=== PATIENT | female | born 1990 | race Caucasian/White ===

== ENCOUNTER 2017-02-04 00:05 | Emergency (ER) | payer OTHER ==
[~2017-02-04] VITALS: Ht 162.6 cm; Wt 110.6 kg
[2017-02-04 00:11] VITALS: TEMP 36.7; Ht 162.6 cm; Wt 110.6 kg
[2017-02-04 00:38] LABS: BASO % 0.4 %; BASO ABS # 0.04 K/uL (0-0.2); COMPLETE YES; EOS % 1.4 %; HEMATOCRIT 39.2 % (37-47); IG% 0.1 %; LYMPH % 29.9 %; LYMPH ABS # 2.72 K/uL (1.2-3.4); MEAN CELL VOLUME 86.2 fL (80-100); MEAN CORPUSCULAR HEMOGLOBIN 29.2 pg (25-34); MEAN CORPUSCULAR HGB CONC 33.9 g/dl (32-36); MEAN PLATELET VOLUME 9.7 fL (7.4-10.4); MONO % 6.7 %; NEUT % 61.5 %; PLATELET COUNT 265 K/uL (130-400); RED BLOOD COUNT 4.55 M/uL (4.2-5.4); WHITE BLOOD COUNT 9.09 K/uL (4.8-10.8)
[2017-02-04] MEDS ORDERED: PRENTAB26 PO (00:38)
[2017-02-04 00:55] LABS: BUN/CREATININE RATIO 24.4 (10-20); CALCIUM 9.4 mg/dl (8.5-10.1); CREATININE 0.67 mg/dl (0.60-1.20); POTASSIUM 3.9 mmol/L (3.5-5.1)
[2017-02-04 02:20] LABS: URINE APPEARANCE CLEAR (CLEAR); URINE BILIRUBIN NEG (NEG); URINE COLOR YELLOW; URINE EPITHELIAL CELL AUTO 20-30 /lpf (0-5); URINE NITRITE NEG (NEG); UROBILINOGEN NEG (NEG)
[2017-02-04 02:21] LABS: MANUAL MICROSCOPIC REQUIRED? NO; REVIEW REQ? NO
--- NOTE | 2017-02-04 02:39 | EMERGENCY ROOM VISIT NOTE ---
History Report prepared by Buddy: Louise Chavez Under the Supervision of: Dr. Andre Putnam M.D. First contact with patient: 00:13 Chief Complaint: ED VAG BLEEDING Stated Complaint: BLEEDING - 9 WKS History of Present Illness The patient is a 26 year old female who presents to the Emergency Room with complaints of worsening vaginal bleeding starting two days ago. The patient states that she is 8-9 weeks . She reports that this is her second and she denies any complications with her prior . She states that when it originally started it was brown and spotting. She states that now it is heavier and more like the start of a period. The patient denies any abdominal or pelvic pain, fever, vomiting, and urinary symptoms. She notes that she has an ultrasound scheduled for tomorrow. Source of History: patient Onset: 2 days ago Position: other (global) Quality: other (global) Timing: worsening Associated Symptoms: No fevers, No vomiting, No urinary symptoms Note: The patient denies any pain. Review of Systems See HPI for pertinent positives & negatives. A total of 10 systems reviewed and were otherwise negative. Past Medical & Surgical Medical Problems: (1) No Known Active Medical Problems Family History No pertinent family history Social History Smoking Status: Former Smoker Marital Status: Housing Status: lives with family Current/Historical Medications Scheduled Multivit/Min/Iron/Fol Ac/Pren ( Vitamin), 1 TAB PO DAILY Allergies Coded Allergies: No Known Allergies (Unverified , 02/04/17) Physical Exam Vital Signs Date Time Temp Pulse Resp B/P (MAP) Pulse Ox O2 Delivery O2 Flow Rate FiO2 02/04/17 01:46 77 18 114/85 97 Room Air 02/04/17 00:11 36.7 76 18 148/86 99 Room Air Physical Exam Constitutional: Vital signs reviewed. Eyes: Pupils are equal round reactive to light. Conjunctiva are noninjected. ENT: Pharynx is clear without erythema or exudate. Mucous membranes are moist. Neck supple without meningeal signs. Respiratory: Clear to auscultation bilaterally. Breath sounds are equal bilaterally. Cardiovascular: Regular rate and rhythm. No rubs or gallops. GI: Soft, nondistended and nontender. Bowel sounds are present. Musculoskeletal: No peripheral edema. No lower extremity tenderness. Integumentary: No cyanosis. Neurological: The patient is awake and alert. No focal deficits. Psychiatric: Normal affect. Medical Decision & Procedures ER Provider Diagnostic Interpretation: Ultrasound of the pelvis demonstrates a 1.6 x 1 x 1.3 cm subchorionic hemorrhage. Single intrauterine . Embryo identified with average ultrasound age of 6 weeks 0 days. No heart rate is detected. Recommend serial beta hCG measurements and short-term follow up exam if clinically indicated. Small yolk sac identified. Unremarkable right ovary likely containing a corpus luteum though there appears to be some shadowing which may be from a small calcification. Normal color Doppler flow. Nonvisualization of the left ovary. Laboratory Results 02/04/17 00:28 Red Blood Count 4.55, Mean Corpuscular Volume 86.2, Mean Corpuscular Hemoglobin 29.2, Mean Corpuscular Hemoglobin Concent 33.9, Mean Platelet Volume 9.7, Neutrophils (%) (Auto) 61.5, Lymphocytes (%) (Auto) 29.9, Monocytes (%) (Auto) 6.7, Eosinophils (%) (Auto) 1.4, Basophils (%) (Auto) 0.4, Neutrophils # (Auto) 5.58, Lymphocytes # (Auto) 2.72, Monocytes # (Auto) 0.61, Eosinophils # (Auto) 0.13, Basophils # (Auto) 0.04 02/04/17 00:28 Test 02/04/17 00:00 02/04/17 00:28 Urine Color YELLOW Urine Appearance CLEAR (CLEAR) Urine pH 6.0 (4.5-7.5) Urine Specific [place] 1.010 (1.000-1.030) Urine Protein NEG (NEG) Urine Glucose (UA) NEG (NEG) Urine Ketones NEG (NEG) Urine Occult Blood 3+ (NEG) Urine Nitrite NEG (NEG) Urine Bilirubin NEG (NEG) Urine Urobilinogen NEG (NEG) Urine Leukocyte Esterase TRACE (NEG) Urine WBC (Auto) 1-5 /hpf (0-5) Urine RBC (Auto) 0-4 /hpf (0-4) Urine Hyaline Casts (Auto) 1-5 /lpf (0-5) Urine Epithelial Cells (Auto) 20-30 /lpf (0-5) Urine Bacteria (Auto) NEG (NEG) White Blood Count 9.09 K/uL (4.8-10.8) Red Blood Count 4.55 M/uL (4.2-5.4) Hemoglobin 13.3 g/dL (12.0-16.0) Hematocrit 39.2 % (37-47) Mean Corpuscular Volume 86.2 fL (80-100) Mean Corpuscular Hemoglobin 29.2 pg (25-34) Mean Corpuscular Hemoglobin Concent 33.9 g/dl (32-36) Platelet Count 265 K/uL (130-400) Mean Platelet Volume 9.7 fL (7.4-10.4) Neutrophils (%) (Auto) 61.5 % Lymphocytes (%) (Auto) 29.9 % Monocytes (%) (Auto) 6.7 % Eosinophils (%) (Auto) 1.4 % Basophils (%) (Auto) 0.4 % Neutrophils # (Auto) 5.58 K/uL (1.4-6.5) Lymphocytes # (Auto) 2.72 K/uL (1.2-3.4) Monocytes # (Auto) 0.61 K/uL (0.11-0.59) Eosinophils # (Auto) 0.13 K/uL (0-0.5) Basophils # (Auto) 0.04 K/uL (0-0.2) RDW Standard Deviation 39.9 fL (36.4-46.3) RDW Coefficient of Variation 12.7 % (11.5-14.5) Immature Granulocyte % (Auto) 0.1 % Immature Granulocyte # (Auto) 0.01 K/uL (0.00-0.02) Anion Gap 7.0 mmol/L (3-11) Est Creatinine Clear Calc Drug Dose 153.5 ml/min Estimated GFR () 139.6 Estimated GFR (Non- 120.5 BUN/Creatinine Ratio 24.4 (10-20) Calcium Level 9.4 mg/dl (8.5-10.1) Human Chorionic Gonadotropin, Quant 66472 mIU/mL Laboratory results as reviewed by me. ED Course 0014: The patient was evaluated in room A4B. A complete history and physical exam was performed. Medical Decision This is a 26-year-old female who presents with vaginal bleeding. Differential diagnosis includes threatened miscarriage, ectopic , miscarriage, uterine fibroid, ruptured ovarian cyst. I did perform a limited focused review of portions of the patient's old chart on the electronic medical record. The patient has had no recent pertinent visits to this hospital. I did evaluate the patient as noted above. The patient is presenting with vaginal bleeding starting several days ago. She is approximately 8-9 weeks . She has had no prior occasions with her pregnancies in the past. She has no pelvic pain. IV access was established. I did order and personally review the patient's urinalysis as described above. I did order and review the patient's blood work as noted in the electronic medical record. I did order an ultrasound of the pelvis. I did review the images myself as well as the radiology report as described above. The ultrasound shows a subchorionic hemorrhage. There is a intrauterine with a gestational age of 6 weeks. There is no detectable heart rate. I did reassess the patient. I did discuss the test results with her and her . At this time it seems most likely that she had a miscarriage, although I did recommend that she have a repeat beta-hCG and follow up with her cement mason as the radiologist's stated that it could possibly be a very early gestation. The patient will call her cement mason tomorrow. She was discharged in good condition. Medication Reconcilliation Current Medication List: was personally reviewed by me Blood Pressure Screening Patient's blood pressure: Elevated blood pressure Blood pressure disposition: Referred to PCP Impression Primary Impression: Threatened miscarriage in early Scribe Attestation The scribe's documentation has been prepared under my direct and personally reviewed by me in its entirety. I confirm that the note above accurately reflects all work, treatment, procedures, and medical decision making performed by me. Departure Information Dispostion Home / Self-Care Referrals No Doctor, Assigned (PCP) Patient Instructions [facility] Additional Instructions You have been examined and treated today on an emergency basis only. This is not a substitute for, or an effort to provide, complete comprehensive medical care. It is impossible to recognize and treat all injuries or illnesses in a single emergency department visit. It is therefore important that you follow up closely with your cement mason. Call as soon as possible for an appointment. Have your doctor recheck your beta hCG which was 19,000 today. Return for worsening symptoms or if you develop fever, vomiting, or any other concerning symptoms.
[2017-02-04 02:43] VITALS: BP 118/71; PULSE 65; O2SAT 98
--- NOTE | 2017-02-04 06:59 | DIAGNOSTIC IMAGING REPORT ---
ECTOPIC HISTORY: 26 years-old Female vag bleed 8 weeks acute vaginal bleeding with COMPARISON: None available TECHNIQUE: Multiple real-time sonographic images of the deep pelvic structures were obtained transabdominally and transvaginally assessing grayscale appearance, color Doppler flow, spectral analysis and M-mode analysis. FINDINGS: TRANSABDOMINAL: Anteflexed uterus measures 10.7 x 5.1 cm. There is a curvilinear hypoechoic collection noted inferior to an intrauterine gestational sac, 1.7 x 0.8 x 1.2 cm without internal vascularity identified. Gestational sac measures 1.2 cm correlating with estimated gestational age of 5 weeks and 2 days. TRANSVAGINAL: Anteflexed uterus measures 9.0 x 5.6 x 6.2 cm. Complex collection which is slightly hypoechoic is noted anterior and inferior to the gestational sac suggesting subchorionic hematoma, 1.6 x 1.0 x 1.3 cm. No internal vascularity identified. Gestational sac measures 1.3 cm, correlating with estimated gestational age of 5 weeks and 3 days. Yolk sac measures 0.2 cm. [place]-rump length measures 0.3 cm which correlates with estimated gestational age of 6 weeks and 0 days. No heart rate identified. Right ovary measures 3.1 x 1.8 x 1.6 cm with arterial inflow documented. Probable right corpus luteum measures 1.7 x 1.7 x 1.6 cm. Focal area of shadowing within the right ovary suggests possible calcification. Left ovary is not diagnostically visualized. IMPRESSION: 1. Intrauterine gestational sac contains a small yolk sac and fetus with size correlating with estimated gestational age by crown-rump length of 6 weeks and 0 days. No heart rate identified at this time. Continued follow-up with serial quantitative beta hCG analysis and ultrasound imaging is needed to confirm viability. 2. Moderate-sized subchorionic hematoma is noted inferior and anterior to the gestational sac measuring up to 1.6 cm. Follow-up recommended to confirm resolution. 3. Unremarkable right ovary with right corpus luteum. Left ovary not diagnostically visualized. The above report was generated using voice recognition software. It may contain grammatical, syntax or spelling errors. Electronically signed by: Antonio Munguia M.D. 02/04/2017 6:58 AM Dictated Date/Time: 02/04/2017 6:52 AM
== END 2017-02-04 02:44 | disposition home or self-care (01) ==
LOC: C.EDB 00:07 → C.EDA 02:44
DX: O20.0 Threatened abortion (principal); Z87.891 Personal history of nicotine dependence

== ENCOUNTER → 2017-05-08 | Outpatient (CLI) | payer OTHER ==
[~2017-05-08] MED LIST: PRENTAB26 PO
== END | disposition home or self-care (01) ==
LOC: C.LABSPEC 14:35
PROVIDERS: ATTEND Obstetrics & Gynecology
DX: Z34.81 Encounter for supervision of other normal pregnancy, first trimester (principal)

== ENCOUNTER 2019-03-27 20:19 | Inpatient (IN) ==
[2019-03-27] MEDS ORDERED: OXYTOCIN 30 UNITS/500ML NSS ONE (20:32)
[2019-03-27] MEDS ORDERED: OXYTOCIN 30 UNITS/500 ML BAG IV PRN ×2 (20:45→20:49)
[2019-03-27] MEDS ORDERED: LACTATED RINGER'S 1,000 ML IV PRN (20:45)
[2019-03-27] MEDS ORDERED: HYDROCORTISONE ACETATE 25 MG SUPP PR PRN (20:49)
[2019-03-27] MEDS ORDERED: ACETAMINOPHEN W/CODEINE #3 1 TAB PO PRN (20:49)
[2019-03-27] MEDS ORDERED: BENZOCAINE 20% AER SPR 82.5 GM CAN EXT PRN (20:49)
[2019-03-27] MEDS ORDERED: DIPHTHERIA/TETANUS/PERTUSSIS 0.5 ML SYR/VIAL IM ONE (20:49)
[2019-03-27] MEDS ORDERED: bisacodyL 10 MG SUPP PR PRN (20:49)
[2019-03-27] MEDS ORDERED: SUPERCREAM 0.870% 15 GM JAR EXT PRN (20:49)
[2019-03-27] MEDS ORDERED: OXYCODONE/ACETAMINOPHEN 5mg/325mg TAB PO PRN (20:49)
[2019-03-27] MEDS ORDERED: DOCUSATE SODIUM 100 MG CAP ONE (21:07)
[2019-03-27] MEDS ORDERED: IBUPROFEN 600 MG TAB PO ONE (21:08)
[2019-03-27 21:26] LABS: Hematocrit (blood only) 36.2 % (37-47); Hemoglobin 11.9 g/dL (12.0-16.0); Mean Corpuscular Hemoglobin 26.7 pg (25-34); Mean Corpuscular Volume 81.2 fL (80-100); Mean Platelet Volume 10.5 fL (7.4-10.4); Platelet Count 247 K/uL (130-400); RDW Coefficient of Variation 14.5 % (11.5-14.5); RDW Standard Deviation 42.6 fL (36.4-46.3); Red Blood Count 4.46 M/uL (4.2-5.4); White Blood Count 11.85 K/uL (4.8-10.8)
[2019-03-27 22:50] LABS: Mean Corpuscular Hgb Conc 32.9 g/dL (32-36)
[2019-03-27] MEDS: DOCUSATE SODIUM 100 MG CAP PO SCH (23:26)
[2019-03-27] MEDS: ACETAMINOPHEN 325 MG TAB PO PRN (23:28)
--- NOTE | 2019-03-28 02:32 | Delivery Summary ---
DATE OF OPERATION: 03/27/2019 The patient is a 3, para 2. She had a with her first delivery at [place]. Subsequently, she had a and today she had another successful . care was limited due to the patient's refusal to have any pelvic exams at all and did not want any interference, offer to strip her membranes was declined. She came in active labor. I got to the Labor Floor. The membranes were bulging through the vaginal introitus. I broke the water. There was some meconium staining. About 4 pushes, she pushed out a live female infant via direct occiput anterior position over an intact perineum. There was some difficulty dislodging shoulders. We had to use some flexion of the thigh, suprapubic pressure, then the shoulders dislodged. was born intact, suctioned through the mouth and the nose. There was a little limp at first, so I stripped the cord, cut it, handed it over to the nurses. Estimated weight was well over 10 pounds. The patient did not want oxytocin, so we massaged the uterus, delivered the placenta intact. Inspection of the perineum revealed a first degree laceration at about 4 o'clock. The extent of laceration was identified and then sutured with a running 2-0 heavy Vicryl. Following this, vaginal examination revealed no hematoma formation or sponges in the vagina. Estimated blood loss was 200 mL. Apgars were deferred to the nurses. I attest to the content of the Intraoperative Record and any orders documented therein. Any exception s are noted below.
[2019-03-28] MEDS: IBUPROFEN 600 MG TAB PO PRN ×4 (03:33→20:31)
[2019-03-28 06:28] LABS: Hematocrit (blood only) 34.1 % (37-47); Mean Corpuscular Hemoglobin 26.1 pg (25-34); Mean Corpuscular Hgb Conc 32.3 g/dL (32-36); Mean Corpuscular Volume 80.8 fL (80-100); Mean Platelet Volume 10.6 fL (7.4-10.4); Platelet Count 229 K/uL (130-400); RDW Coefficient of Variation 14.5 % (11.5-14.5); RDW Standard Deviation 42.2 fL (36.4-46.3); Red Blood Count 4.22 M/uL (4.2-5.4)
[2019-03-28] MEDS: PRENATAL VITAMIN 1 TAB PO SCH (07:23)
[2019-03-28] MEDS: DOCUSATE SODIUM 100 MG CAP PO SCH ×2 (07:24→20:31)
[2019-03-28] MEDS: ACETAMINOPHEN 325 MG TAB PO PRN ×2 (10:56→17:30)
--- NOTE | 2019-03-28 11:07 | Obstetrical Progress Note ---
Date of Service March 28, 2019 Physical Exam Physical Exam: abdomen soft and non tender ambulating well no calf tenderness vaginal bleeding scant hgb 11.1 Results & Data Vital Signs (Past 12 Hours) Vital Signs Temp Pulse Pulse Resp BP BP 03/28/19 07:30 36.6 C 59 L 18 108/70 03/28/19 03:55 36.7 C 72 18 108/70 03/28/19 01:00 36.8 C 67 16 113/76
[2019-03-28] MEDS ORDERED: bisacodyL 5 MG TABEC PO SCH (20:00)
[2019-03-29] MEDS: IBUPROFEN 600 MG TAB PO PRN (02:54)
[2019-03-29 06:50] LABS: Hematocrit (blood only) 33.3 % (37-47); Hemoglobin 10.8 g/dL (12.0-16.0)
--- NOTE | 2019-03-29 09:23 | Obstetrical Progress Note ---
Date of Service March 29, 2019 Physical Exam Physical Exam: abdomen soft and non tender no calf tenderness ambulating well vaginal bleeding scant hgb 10.8 Results & Data Vital Signs (Past 12 Hours) Vital Signs Temp Pulse Resp BP Pulse Ox 03/29/19 07:50 36.8 C 66 18 104/69 98 03/29/19 00:40 36.8 C 66 16 117/86
[2019-03-29] MEDS: PRENATAL VITAMIN 1 TAB PO SCH (09:58)
[2019-03-29] MEDS: DOCUSATE SODIUM 100 MG CAP PO SCH (09:58)
== END 2019-03-29 13:52 | disposition home or self-care (01) | DRG 807 ==
LOC: OPB 20:19 → 4S1 20:21 → 4S2 03-28